=== PATIENT | female | born 1945 | race Caucasian/White ===

== ENCOUNTER → 2016-12-27 | Outpatient (CLI) | payer MEDICARE, OTHER ==
[~2016-12-27] MED LIST: AMLO-254 PO; AMLO2.5T2 PO; EZET1TAB26 PO; IPRA4AER IH; LEVO25TA55 PO; LISI-376 PO; SIMV5TAB5 PO
--- NOTE | 2016-12-27 15:12 | RAD ---
DATE: 12/27/2016 EXAM: MAMMO TRI SCREENING BILATERAL HISTORY: Routine screening COMPARISON: 10/17/2015 This study was interpreted with the benefit of Computerized Aided Detection (CAD). FINDINGS: 2-D and 3-D tomosynthesis imaging was performed in CC and MLO projections. There are scattered residual fibroglandular densities primarily in the retroareolar regions. No new or enlarging breast densities are seen. No suspicious microcalcifications are evident. IMPRESSION: Stable mammograms without evidence of malignancy. BI-RADS CATEGORY: 2 BENIGN FINDING(S) RECOMMENDED FOLLOW-UP: 12M 12 MONTH FOLLOW-UP PQRS compliance statement: Patient information was entered into a reminder system with a target due date for the next mammogram. Mammography is a sensitive method for finding small breast cancers, but it does not detect them all and is not a substitute for careful clinical examination. A negative mammogram does not negate a clinically suspicious finding and should not result in delay in biopsying a clinically suspicious abnormality. "Our facility is accredited by the [employer] Mammography [employer]."
== END | disposition home or self-care (01) ==
LOC: MAMMO 10:27
PROVIDERS: ATTEND Physician Assistant Medical
DX: Z12.31 Encounter for screening mammogram for malignant neoplasm of breast (principal); Z78.0 Asymptomatic menopausal state
CPT/HCPCS: 77063; G0202; 77067

== ENCOUNTER → 2018-02-06 | Outpatient (CLI) | payer MEDICARE, OTHER ==
[~2018-02-06] MED LIST changes: -AMLO-254 PO; +AMLO-268 PO
--- NOTE | 2018-02-06 16:18 | RAD ---
DATE: 02/06/2018 EXAM: DIGITAL SCREEN BILAT W/CAD HISTORY: Asymptomatic screening mammogram. COMPARISON: Prior mammogram from 12/27/2016, 10/17/2015 and 09/16/2014 This study was interpreted with the benefit of Computerized Aided Detection (CAD). The breast parenchyma is primarily fatty replaced. Breast parenchyma level density A. FINDINGS: Bilateral CC and MLO views of the breasts were performed. Right breast: There are no suspicious microcalcifications, masses or areas of architectural distortion. Left breast: There are no suspicious microcalcifications, masses or areas of architectural distortion. Findings are stable from prior mammogram. IMPRESSION: Negative bilateral mammogram. BI-RADS CATEGORY: 1 NEGATIVE RECOMMENDED FOLLOW-UP: ADD ADDITIONAL IMAGING PQRS compliance statement: Patient information was entered into a reminder system with a target due date 02/06/2019 for the next mammogram. Mammography is a sensitive method for finding small breast cancers, but it does not detect them all and is not a substitute for careful clinical examination. A negative mammogram does not negate a clinically suspicious finding and should not result in delay in biopsying a clinically suspicious abnormality. "Our facility is accredited by the [employer] Mammography [employer]."
== END | disposition home or self-care (01) ==
LOC: MAMMO 10:17
PROVIDERS: ATTEND Physician Assistant Medical
DX: Z12.31 Encounter for screening mammogram for malignant neoplasm of breast (principal)
CPT/HCPCS: 77067

== ENCOUNTER → 2018-09-30 | Outpatient (CLI) | payer MEDICARE, OTHER ==
[~2018-09-30] MED LIST changes: +SIMV5TAB14 PO; -SIMV5TAB5 PO
--- NOTE | 2018-09-30 11:55 | RAD ---
PQRS Compliance Statement: One or more of the following individualized dose reduction techniques were utilized for this examination: 1. Automated exposure control 2. Adjustment of the mA and/or kV according to patient size 3. Use of iterative reconstruction technique CT ABDOMEN PELVIS WO CONTRAST Clinical Indication: LLQ PAIN FOR A FEW WEEKS Comparison: CT abdomen and pelvis with contrast, November 26, 2006. Technique: Helical CT imaging of the abdomen and pelvis is performed without IV or oral contrast. Findings: Evaluation of solid organs and bowel is limited without oral and IV contrast, decreasing sensitivity for detection of pathology. The lung bases are clear. Cardiac size normal. There is mild fatty infiltration of the liver. There are 2 small hypodensities in the left hepatic lobe, image 23. There is a third hypodensity in the left hepatic lobe, image 29. The hypodensities are incompletely characterized. There is a benign calcification in the right hepatic lobe. The spleen, gallbladder, and pancreas are normal. There is a 9 mm nodule of the left adrenal gland. The right adrenal gland is normal. There is a 3.4 cm cyst in the upper pole of the left kidney. There is a faint cortical hypodensity in the lower pole of the left kidney, incompletely characterized. No hydronephrosis. No renal calculus. Stomach unremarkable. No dilated small bowel. There are multiple small calcifications of the omentum. Finding not present on prior study. No abdominal adenopathy or free fluid. There is no colon wall thickening. Appendix is not seen, no secondary signs of appendicitis. Urinary bladder is normal. Hysterectomy. No pelvic free fluid. No acute bone abnormality. IMPRESSION: 1. There are multiple peritoneal calcifications. No soft tissue nodularity of the omentum or ascites is seen to suggest pseudomyxoma peritonei. Peritoneal spread of malignancy is however not entirely excluded. Other considerations include hyperparathyroidism or sequela of peritonitis, for example tuberculosis. 2. Mild fatty infiltration of the liver. There are 3 small hypodensities in the left hepatic lobe, incompletely characterized but stable from prior study. 3. Faint cortical hypodensity lower pole of left kidney, incompletely characterized. Recommend outpatient renal ultrasound. 4. Small left adrenal adenoma. Electronically signed by: Guru Em MD (09/30/2018 11:52 AM) [id number]
== END | disposition home or self-care (01) ==
LOC: PMG 11:02
PROVIDERS: ATTEND Physician Assistant Medical
DX: K76.0 Fatty (change of) liver, not elsewhere classified (principal); D35.02 Benign neoplasm of left adrenal gland; K66.8 Other specified disorders of peritoneum
CPT/HCPCS: 74176

== ENCOUNTER → 2018-10-06 | Outpatient (CLI) | payer MEDICARE, OTHER ==
--- NOTE | 2018-10-06 12:10 | RAD ---
EXAM: Renal sonogram. HISTORY: Adrenal nodule. TECHNIQUE: Sonographic imaging of the kidneys and bladder was performed. COMPARISON: CT dated 09/30/2018. FINDINGS: The right kidney measures 11.1 cm [id number]. The left kidney measures 10.8 cm [id number]. There is no hydronephrosis. There is a 3.2 x 2.9 x 2.5 cm cyst within the upper pole of the left kidney. No solid renal lesion is seen. The bladder volume is 92 cc. The ureteral jets are both seen. There is incidental echogenic liver parenchyma due to steatosis. IMPRESSION: 1. 3.2 cm left renal cyst. Otherwise, sonographically unremarkable kidneys and bladder. 2. Hepatic steatosis. Note is made that small indeterminate hypodense lesions within the liver demonstrated on the prior CT are not seen sonographically. 3. Note is made that a reported left adrenal nodule on the prior CT is not seen sonographically. 4. Note is made that tiny hypodense lesions within the lower pole of the left kidney and anterolateral mid aspect of the right kidney on the prior CT demonstrate no clear sonographic correlate. These remain indeterminant. 5. Note is made that peritoneal calcifications demonstrated on the prior CT are not characterized sonographically. Electronically signed by: Marlyn Bird MD (10/06/2018 12:07 PM) [place] [id number]
== END | disposition home or self-care (01) ==
LOC: US 09:46
PROVIDERS: ATTEND Physician Assistant Medical
DX: K76.0 Fatty (change of) liver, not elsewhere classified (principal); N28.1 Cyst of kidney, acquired
CPT/HCPCS: 76770

== ENCOUNTER → 2020-01-12 | Outpatient (CLI) | payer MEDICARE, OTHER ==
--- NOTE | 2020-01-12 16:45 | RAD ---
BILATERAL SCREENING MAMMOGRAM History: Routine screening. Comparison: 10/17/2015, 12/27/2016, 02/06/2018. Technique: Routine bilateral digital mammogram views were obtained. Findings: Breast Tissue Density B : There are scattered areas of fibroglandular density. There are no dominant masses, suspicious microcalcifications, or architectural distortion. Right-sided infusion port obscures evaluation of the posterior right axillary level. IMPRESSION: No mammographic evidence of malignancy. Recommend routine screening. BI-RADS category 1: Negative. The images were reviewed with computer aided detection. Patient information is entered into the reminder system with a target due date for the next screening mammogram. Mammography is the most sensitive method for finding small breast cancers, but it does not detect them all and is not a substitute for careful clinical examination. A negative mammogram does not negate a clinically suspicious finding and should not result in delay in biopsying a clinically suspicious abnormality. "Our facility is accredited by the [employer] Mammography [employer]." Electronically signed by: Gurdeep Waldrop MD (01/12/2020 4:43 PM) [id number]
== END | disposition home or self-care (01) ==
LOC: MAMMO 10:45
PROVIDERS: ATTEND Physician Assistant Medical
DX: Z12.31 Encounter for screening mammogram for malignant neoplasm of breast (principal)
CPT/HCPCS: 77067

== ENCOUNTER → 2021-01-19 | Outpatient (CLI) | payer MEDICARE, OTHER ==
--- NOTE | 2021-01-23 18:09 | RAD ---
DATE: 01/19/2021 EXAM: DIGITAL SCREEN BILAT W/CAD HISTORY: Screening COMPARISON: Multiple prior exams dating back to 09/16/2014 This study was interpreted with the benefit of Computerized Aided Detection (CAD). Breast Density: SCATTERED The breast parenchyma shows scattered fibroglandular densities. Breast parenchyma level B. FINDINGS: No mass, suspicious calcification, or architectural distortion in either breast. IMPRESSION: No evidence of malignancy. BI-RADS CATEGORY: 1 NEGATIVE RECOMMENDED FOLLOW-UP: 12M 12 MONTH FOLLOW-UP PQRS compliance statement: Patient information was entered into a reminder system with a target due date for the next mammogram. Mammography is a sensitive method for finding small breast cancers, but it does not detect them all and is not a substitute for careful clinical examination. A negative mammogram does not negate a clinically suspicious finding and should not result in delay in biopsying a clinically suspicious abnormality. "Our facility is accredited by the [employer] Mammography [employer]."
== END ==
LOC: MAMMO 11:04
PROVIDERS: ATTEND Physician Assistant Medical
DX: Z12.31 Encounter for screening mammogram for malignant neoplasm of breast (principal)
CPT/HCPCS: 77067